=== PATIENT | female | born 1970 | race Caucasian/White ===

== ENCOUNTER 2017-06-07 23:53 | Emergency (ER) | payer OTHER ==
--- NOTE | 2017-06-08 00:58 | ED Physician Documentation ---
History of Present Illness - Stated complaint Stated Complaint: COUGH,HEADACHE - Chief complaint Chief Complaint: Resp - History obtained from History obtained from: Patient - History of Present Illness Timing: How many days ago (3) Improved by: rest Worsened by: exertion - Additonal information Additional information: c/o [employer] cough, chills/sweats, dyspnea. has not taken temperature at home. Review of Systems Constitutional: reports: Chills, Myalgias, Fatigue, Sweats. denies: Fever Throat: reports: Sore throat (mild ("because of all the coughing", per patient)) Cardiac: denies: Chest pain / pressure, Palpitations, Pedal edema, Calf pain Respiratory: reports: Dyspnea, Cough PD PAST MEDICAL HISTORY - Past Medical History Past Medical History: No - Past Surgical History Ortho: Other HEENT: Tonsil/Adenoidectomy - Present Medications Home Medications: Ambulatory Orders Medication Instructions Recorded Confirmed Albuterol Sulfate [Proventil Hfa 1 - 2 puffs INH Q4H PRN #1 inhaler 06/08/17 Inhaler] - Allergies Allergies/Adverse Reactions: Allergies Allergy/AdvReac Type Severity Reaction Status Date / Time acetaminophen [From Percocet] Allergy Rash Verified 06/08/17 00:05 epinephrine Allergy Dizziness Verified 06/08/17 00:05 oxycodone HCl * Allergy Rash Verified 06/08/17 00:05 [From Percocet] diphenhydramine HCl * AdvReac Unknown Verified 06/08/17 00:05 [From Benadryl] promethazine HCl * AdvReac Cramps Verified 06/08/17 00:05 [From Phenergan] - Social History Does the pt smoke?: No Smoking Status: Never smoker Does the pt drink ETOH?: No Does the pt have substance abuse?: No - Immunizations Immunizations are current?: No Immunizations: TDAP >10years/unknown PD ED PE NORMAL - Vitals Vital signs reviewed: Yes - General General: Alert and oriented X 3, No acute distress, Well developed/nourished - HEENT HEENT: Pharynx benign - Neck Neck: Supple, no meningeal sign - Cardiac Cardiac: RRR, No murmur - Respiratory Respiratory: No respiratory distress, Other (bilateral end-expiratory course wheezing) - Extremities Extremities: No edema Results - Vitals Vitals: Oxygen O2 Source Room air - Labs Labs: Laboratory Tests 06/08/17 00:07 Influenza A (Rapid) Negative Influenza B (Rapid) POSITIVE H Influenza Types A,B Ag + H - Rads (name of study) chest xray Radiology: Prelim report reviewed, See rad report PD MEDICAL DECISION MAKING - ED course Complexity details: reviewed results (Patient reported feeling significant relief with albuterol neb. reexam of lungs reveals minimal/trace end-expiratory wheezing, scattered bilaterally. good air flow), re-evaluated patient, considered differential, d/w patient Departure - Departure Disposition: 01 Home, Self Care Clinical Impression: Influenza Condition: Good Instructions: ED Flu Follow-Up: [facility] [Provider Group] [facility] [Provider Group] Prescriptions: Albuterol Sulfate [Proventil Hfa Inhaler] 1 - 2 puffs INH Q4H PRN #1 inhaler PRN Reason: Shortness Of Air/Wheezing Discharge Date/Time: 06/08/17 04:30
[2017-06-08] MEDS ORDERED: ALBUTEROL NEB 2.5 MG/3 ML INH STA (01:20)
[2017-06-08] MEDS ORDERED: ALBUTEROL NEB 2.5 MG/3 ML INH ONE (01:21)
--- NOTE | 2017-06-08 03:41 | XRAY Preliminary Report ---
Exam: XR CHEST 2 VIEW X-RAY IMPRESSION: 1. No acute abnormality seen in the chest. [facility] SITE ID: [id number]
--- NOTE | 2017-06-08 03:41 | XRAY Report ---
EXAM: CHEST RADIOGRAPHY EXAM DATE: 06/08/2017 03:27 AM. CLINICAL HISTORY: Cough, dyspnea. COMPARISON: None. TECHNIQUE: 2 views. FINDINGS: Lungs/Pleura: No alveolar consolidation or pleural effusion. No pneumothorax. Mediastinum: Heart and mediastinal contours are unremarkable. Other: None. IMPRESSION: 1. No acute abnormality seen in the chest. [facility] Referring Provider Line: [phone] SITE ID: [id number]
[2017-06-08 04:30] VITALS: BP 99/66
== END 2017-06-08 04:30 | disposition home or self-care (01) ==
LOC: ED 23:53
DX: J11.1 Influenza due to unidentified influenza virus with other respiratory manifestations (principal)
CPT/HCPCS: 71046; 87275; 87276; 94640; 99283

== ENCOUNTER 2017-06-12 13:14 | Observation (INO) | payer OTHER ==
[2017-06-12] MEDS ORDERED: SODIUM CHLORIDE 0.9% 1,000 ML IV ONE ×2 (13:41→15:40)
[2017-06-12] MEDS ORDERED: ONDANSETRON 4 MG/2 ML VIAL IVP STA (13:52)
[2017-06-12] MEDS ORDERED: ACETAMINOPHEN 1,000 MG/100 ML 100 ML IV STA (13:52)
[2017-06-12 13:59] LABS: BASOPHILS # (AUTO) 0.1 10^3/uL (0.0-0.1); BASOPHILS % (AUTO) 0.8 %; EOSINOPHILS % (AUTO) 0.5 %; HGB - HEMOGLOBIN 13.9 g/dL (12.0-16.0); LYMPHOCYTES # (AUTO) 1.7 10^3/uL (1.5-3.5); MEAN CORPUSCULAR HEMOGLOBIN 29.7 pg (27.0-31.0); MEAN CORPUSCULAR HGB CONC 33.8 g/dL (32.0-36.0); MEAN CORPUSCULAR VOLUME 87.8 fL (81.0-99.0); MEAN PLATELET VOLUME 9.4 fL (7.9-10.8); MONOCYTES # (AUTO) 0.5 10^3/uL (0.0-1.0); MONOCYTES % (AUTO) 4.8 %; NEUTROPHILS # (AUTO) 7.3 10^3/uL (1.5-6.6); NEUTROPHILS % (AUTO) 75.9 %; PLT - PLATELET COUNT 241 10^3/uL (130-450); RED BLOOD COUNT 4.67 10^6/uL (4.20-5.40); RED CELL DISTRIBUTION WIDTH 12.3 % (12.0-15.0); WHITE BLOOD COUNT 9.6 x10^3/uL (4.8-10.8)
[2017-06-12 14:18] LABS: ALBUMIN 4.4 g/dL (3.2-5.5); ALBUMIN/GLOBULIN RATIO 1.5 (1.0-2.2); BILIRUBIN,TOTAL 1.1 mg/dL (0.2-1.0); CALCIUM 8.8 mg/dL (8.5-10.3); CREATININE 0.7 mg/dL (0.4-1.0); TOTAL PROTEIN 7.4 g/dL (6.7-8.2)
[2017-06-12 14:27] LABS: HCG,QUALITATIVE BLOOD NEGATIVE
--- NOTE | 2017-06-12 14:29 | ED Physician Documentation ---
History of Present Illness - Stated complaint Stated Complaint: ABD PX - Chief complaint Chief Complaint: Abd Pain - Additonal information Additional information: hx from pt 46 female sick for about a week first with resp sx - seen in ED, had + influenza B was fine this AM and then somewhat abruptly developed significant RLQ pain and vomiting LMP now no dysuria some rad to R flank and R thigh as well Review of Systems Constitutional: reports: Fever Respiratory: reports: Dyspnea, Cough (better) GI: reports: Abdominal Pain (RLQ), Nausea, Vomiting (X 4) : reports: LMP (now) Musculoskeletal: reports: Back pain, Extremity pain Endocrine: denies: Easy bruising / bleeding Immunocompromised: denies: Immunocompromised PD PAST MEDICAL HISTORY - Past Surgical History Ortho: Other HEENT: Tonsil/Adenoidectomy - Present Medications Home Medications: Ambulatory Orders Medication Instructions Recorded Confirmed Albuterol Sulfate [Proventil Hfa 1 - 2 puffs INH Q4H PRN #1 inhaler 06/08/1705/27 Inhaler] - Allergies Allergies/Adverse Reactions: Allergies Allergy/AdvReac Type Severity Reaction Status Date / Time acetaminophen [From Percocet] Allergy Rash Verified 06/12/17 13:31 epinephrine Allergy Dizziness Verified 06/12/17 13:31 oxycodone HCl * Allergy Rash Verified 06/12/17 13:31 [From Percocet] diphenhydramine HCl * AdvReac Unknown Verified 06/12/17 13:31 [From Benadryl] promethazine HCl * AdvReac Cramps Verified 06/12/17 13:31 [From Phenergan] - Social History Does the pt smoke?: No Smoking Status: Never smoker Does the pt drink ETOH?: No Does the pt have substance abuse?: No - Immunizations Immunizations are current?: No Immunizations: TDAP >10years/unknown PD ED PE NORMAL - Vitals Vital signs reviewed: Yes - General General: Alert and oriented X 3, Other (looks miserable) - Neck Neck: Supple, no meningeal sign - Cardiac Cardiac: RRR - Respiratory Respiratory: No respiratory distress, Clear bilaterally - Abdomen Abdomen: Other (+ BS soft, TTP RLQ, no focal peritoneal signs) - Back Back: No CVA TTP - Derm Derm: Normal color - Neuro Neuro: Alert and oriented X 3 Results - Vitals Vitals: Vital Signs - 24 hr 06/12/17 13:26 Temperature 36.3 C L Heart Rate 58 L Respiratory 18 Rate Blood Pressure 116/63 O2 Saturation 99 Oxygen O2 Source Room air - Labs Labs: Laboratory Tests 06/12/17 06/12/17 06/12/17 13:55 13:55 13:55 WBC 9.6 RBC 4.67 Hgb 13.9 Hct 41.0 MCV 87.8 MCH 29.7 MCHC 33.8 RDW 12.3 Plt Count 241 MPV 9.4 Neut # 7.3 H Lymph # 1.7 [place] # 0.5 Eos # 0.0 Baso # 0.1 Absolute Nucleated RBC 0.01 Nucleated RBC % 0.1 Sodium 135 Potassium 3.6 Chloride 105 Carbon Dioxide 22 Anion Gap 8.0 BUN 9 Creatinine 0.7 Estimated GFR (MDRD) 90 Glucose 111 H Calcium 8.8 Total Bilirubin 1.1 H AST 32 ALT 37 Alkaline Phosphatase 58 Total Protein 7.4 Albumin 4.4 Globulin 3.0 Albumin/Globulin Ratio 1.5 Lipase 14 L Serum HCG, Qual NEGATIVE Urine Color Urine Clarity Urine pH Ur Specific [place] Urine Protein Urine Glucose (UA) Urine Ketones Urine Occult Blood Urine Nitrite Urine Bilirubin Urine Urobilinogen Ur Leukocyte Esterase Urine RBC Urine WBC Ur Squamous Epith Cells Urine Bacteria Ur Microscopic Review Urine Culture Comments Urine HCG, Qual 06/12/17 14:45 WBC RBC Hgb Hct MCV MCH MCHC RDW Plt Count MPV Neut # Lymph # [place] # Eos # Baso # Absolute Nucleated RBC Nucleated RBC % Sodium Potassium Chloride Carbon Dioxide Anion Gap BUN Creatinine Estimated GFR (MDRD) Glucose Calcium Total Bilirubin AST ALT Alkaline Phosphatase Total Protein Albumin Globulin Albumin/Globulin Ratio Lipase Serum HCG, Qual Urine Color YELLOW Urine Clarity HAZY Urine pH 7.5 Ur Specific [place] 1.025 Urine Protein NEGATIVE Urine Glucose (UA) NEGATIVE Urine Ketones TRACE Urine Occult Blood LARGE H Urine Nitrite NEGATIVE Urine Bilirubin NEGATIVE Urine Urobilinogen 0.2 (NORMAL) Ur Leukocyte Esterase NEGATIVE Urine RBC TNTC H Urine WBC 0-3 Ur Squamous Epith Cells RARE Squamous Urine Bacteria Rare Ur Microscopic Review INDICATED Urine Culture Comments NOT INDICATED Urine HCG, Qual NEGATIVE - Rads (name of study) CT AP Radiology: See rad report (normal except for mild heterogeneous hypoechoic attentuation to left lobe liver likely steatosis per rads - nl GB, nl kidney, no hydro, normal appendix, no abd nodes, nl ovaries s mass or risk for torsion, no FF, no free air, no AAA) PD MEDICAL DECISION MAKING - ED course ED course: repeat exam better but still ill appearing and with continued though lesser right sided abd pain, a bit more tender mid to upper than initial exam so added on ruq sono - but no tech available at this time to do the study labs reviewed and normal except hematuria (LMP now, no stone on CT) and minimally elev bili pt feeling bit better after IVF toradol ofirmev still ill, still with some pain hospitalist will admit for ongoing IVF and continued workup - to fup sono results Departure - Departure Disposition: ED Place in Observation Clinical Impression: Abdominal pain Qualifiers: Abdominal location: right lower quadrant Qualified Code(s): R10.31 - Right lower quadrant pain Condition: Good Discharge Date/Time: 06/12/17 16:36
[2017-06-12] MEDS ORDERED: IOPAMIDOL-300 100 ML VIAL ONE (14:55)
[2017-06-12 14:56] LABS: BILIRUBIN,URINE NEGATIVE (NEGATIVE); GLUCOSE, URINE (UA) NEGATIVE (NEGATIVE); KETONES,URINE (UA) TRACE mg/dL (NEGATIVE); LEUKOCYTE ESTERASE, URINE NEGATIVE (NEGATIVE); NITRITE,URINE NEGATIVE (NEGATIVE); OCCULT BLOOD,URINE LARGE (NEGATIVE); PH,URINE 7.5 PH (5.0-7.5); PROTEIN,URINE NEGATIVE (NEGATIVE); UROBILINOGEN,URINE 0.2 (NORMAL) E.U./dL (NORMAL)
[2017-06-12 14:58] LABS: CLARITY,URINE HAZY (CLEAR); HCG UR QUAL NEGATIVE
[2017-06-12 15:07] LABS: BACTERIA,URINE Rare /HPF (None Seen); RBC,URINE TNTC /HPF (0-5); SQUAMOUS EPITHELIAL CELL,UR RARE Squamous (<= Few)
[2017-06-12] MEDS ORDERED: IOPAMIDOL-300 100 ML VIAL IVP ONE (15:08)
--- NOTE | 2017-06-12 15:23 | CT Preliminary Report ---
Exam: CT ABDOMEN/PELVIS W/ IMPRESSION: 1. No acute intra-abdominal or pelvic abnormality demonstrated. Specifically appendix is well-visuali zed and normal. 2. Heterogeneous hepatic hypoattenuation, which is nonspecific and could be due to many acute and chr onic causes, but is most likely due to hepatic steatosis. Other considerations would include hepatiti s and other causes of hepatocellular disease. [facility] SITE ID: [id number]
--- NOTE | 2017-06-12 15:29 | CT Report ---
EXAM: CT ABDOMEN AND PELVIS EXAM DATE: 06/12/2017 02:58 PM. CLINICAL HISTORY: Right lower quadrant pain. COMPARISONS: Chest radiograph 06/08/2017. CT of abdomen and pelvis without contrast 04/15/2012. TECHNIQUE: Routine helical CT imaging was performed through the abdomen and pelvis. IV contrast: Isov ue 300 100 mL. Enteric contrast: No. Reconstructions: Coronal and sagittal. In accordance with CT protocol optimization, one or more of the following dose reduction techniques w ere utilized for this exam: automated exposure control, adjustment of mA and/or KV based on patient s ize, or use of iterative reconstructive technique. FINDINGS: Lung Bases: Minimal subsegmental atelectasis versus scarring medially in the inferior aspects of the right middle lobe and lingula otherwise unremarkable. Liver: Normal size and surface contour. No suspicious focal lesion. There is heterogeneous hepatic pa renchymal hypoattenuation, predominating in the left lobe. Gallbladder/Bile Ducts: Unremarkable. Spleen: Normal. Pancreas: Normal. Adrenal Glands: Normal. Kidneys: Normal. No masses or hydronephrosis. Normal variant presence of 2 right renal veins. Peritoneal Cavity/Bowel: -No free fluid. No extraluminal gas. -No evidence of bowel obstruction or inflammation. Stool burden is within normal limits. The appendix is well-visualized and normal (for example 07/22). -No abnormally enlarged retroperitoneal or mesenteric lymph nodes. Pelvic Organs: The uterus is anteflexed and unremarkable. No adnexal mass demonstrated. Urinary bladd er is decompressed but unremarkable. Vasculature: No aneurysms or other significant abnormality. Bones: No acute osseous abnormality. Well-circumscribed subcentimeter lucent lesion within the right iliac wing medially is statistically likely benign, possibly a small bone cyst, in the absence of kno wn malignancy (). Other: None. IMPRESSION: 1. No acute intra-abdominal or pelvic abnormality demonstrated. Specifically the appendix is well-vis ualized and normal. 2. Heterogeneous hepatic hypoattenuation, which is nonspecific and could be due to many acute and chr onic causes, but is most likely due to hepatic steatosis. Other considerations would include hepatiti s and other causes of hepatocellular disease. [facility] Referring Provider Line: [phone] SITE ID: [id number]
[2017-06-12] MEDS ORDERED: KETOROLAC 60 MG/2 ML VIAL IVP STA (15:40)
[2017-06-12] MEDS ORDERED: ONDANSETRON ODT 4 MG TABLET TL PRN (15:50)
[2017-06-12] MEDS ORDERED: ONDANSETRON 4 MG/2 ML VIAL IVP PRN (15:50)
[2017-06-12] MEDS ORDERED: HYDROmorphone 1 MG/ML CARPUJECT IVP PRN (15:50)
[2017-06-12] MEDS ORDERED: SODIUM CHLORIDE FLUSH 0.9% 10 ML SYRINGE IVP PRN (15:50)
[2017-06-12] MEDS ORDERED: ALBUTEROL NEB 2.5 MG/3 ML INH PRN (15:53)
[2017-06-12] MEDS: SODIUM CHLORIDE 0.9% 1,000 ML IV SCH (17:06)
[2017-06-12] MEDS: SODIUM CHLORIDE FLUSH 0.9% 10 ML SYRINGE IVP SCH (17:08)
[2017-06-12] MEDS: PANTOPRAZOLE 40 MG VIAL IVP SCH (17:08)
--- NOTE | 2017-06-12 20:57 | Ultrasound Report ---
EXAM: ABDOMEN ULTRASOUND LIMITED, RUQ EXAM DATE: 06/12/2017 08:12 PM. CLINICAL HISTORY: R abd pain hematuria elev bili. COMPARISON: None. TECHNIQUE: Real-time scanning was performed with static images obtained. FINDINGS: Liver: Increased echogenicity with coarsened heterogeneous echotexture. 16.5 cm. Main portal vein jerome w: Hepatopetal. Gallbladder: Normal. No stones, wall thickening, or sonographic Chisholm's sign. Biliary System: CBD measures 3 mm. No intrahepatic or extrahepatic ductal dilatation. Other: Right kidney is unremarkable and without hydronephrosis. IMPRESSION: 1. No cholelithiasis or bile duct dilation. 2. Hepatic steatosis versus other hepatocellular disease. [facility] Referring Provider Line: [phone] SITE ID: [id number]
[2017-06-13 00:09] VITALS: BP 93/57
[2017-06-13] MEDS: SODIUM CHLORIDE FLUSH 0.9% 10 ML SYRINGE IVP SCH (00:56)
[2017-06-13] MEDS: SODIUM CHLORIDE 0.9% 1,000 ML IV SCH (02:51)
[2017-06-13 05:41] LABS: BASOPHILS % (AUTO) 0.2 %; EOSINOPHILS # (AUTO) 0.1 10^3/uL (0.0-0.7); EOSINOPHILS % (AUTO) 1.4 %; HGB - HEMOGLOBIN 11.6 g/dL (12.0-16.0); LYMPHOCYTES # (AUTO) 2.4 10^3/uL (1.5-3.5); LYMPHOCYTES % (AUTO) 45.8 %; MEAN CORPUSCULAR HEMOGLOBIN 29.2 pg (27.0-31.0); MEAN CORPUSCULAR HGB CONC 32.6 g/dL (32.0-36.0); MEAN CORPUSCULAR VOLUME 89.5 fL (81.0-99.0); MEAN PLATELET VOLUME 9.8 fL (7.9-10.8); MONOCYTES # (AUTO) 0.4 10^3/uL (0.0-1.0); MONOCYTES % (AUTO) 6.7 %; NEUTROPHILS # (AUTO) 2.4 10^3/uL (1.5-6.6); NEUTROPHILS % (AUTO) 45.9 %; PLT - PLATELET COUNT 208 10^3/uL (130-450); RED BLOOD COUNT 3.96 10^6/uL (4.20-5.40); RED CELL DISTRIBUTION WIDTH 12.5 % (12.0-15.0); WHITE BLOOD COUNT 5.3 x10^3/uL (4.8-10.8)
[2017-06-13 05:45] LABS: ALBUMIN 3.2 g/dL (3.2-5.5); ALBUMIN/GLOBULIN RATIO 1.3 (1.0-2.2); BILIRUBIN,TOTAL 0.8 mg/dL (0.2-1.0); CALCIUM 7.7 mg/dL (8.5-10.3); CREATININE 0.5 mg/dL (0.4-1.0); TOTAL PROTEIN 5.6 g/dL (6.7-8.2)
[2017-06-13] MEDS: PANTOPRAZOLE 40 MG VIAL IVP SCH (07:04)
--- NOTE | 2017-06-13 07:48 | Discharge Plan ---
Discharge Plan Disposition: 01 Home, Self Care Condition: Good Diet: Regular Activity Restrictions: Activity as Tolerated Shower Restrictions: No Driving Restrictions: No Additional Instructions or Follow Up instructions: You were placed in observation for right lower quadrant pain. After examination , review of laboratory work and a CT of the abdomen, you may have either ruptured an ovarian cyst or passed a kidney stone. There is no appendicitis visible and no enlarging lymph glands for mesenteric adenitis. Unfortunately, you may do this again in the future. Because you are currently menstruating, it masks the blood we would have otherwise have seen in your urinalysis and that would have let us know it was a kidney stone. Please followup with your primary care provider in the next month just to update them on your stay with us. No Smoking: If you smoke, Please STOP! Call for help.
--- NOTE | 2017-06-13 08:44 | HISTORY & PHYSICAL EXAMINATION ---
DATE OF SERVICE: 06/12/2017 Physician: Lovely Harris MD PRIMARY CARE PROVIDER: [facility]. ADMITTING PROVIDER: Lovely Harris. CHIEF COMPLAINT: Sudden onset excruciating right lower quadrant abdominal pain accompanied by nausea and vomiting. HISTORY OF PRESENT ILLNESS: The patient had just been in the hospital visiting our emergency room for the flu on 06/07/2017. She had fever, chills, severe myalgias, arthralgias with wheezing and bronchitis. She was flu B positive. The emergency room doctor opted not to treat her for it with Tamiflu and she went home for symptomatic management. She has been gradually recovering from the flu and its effects. The anorexia, coughing and wheezing have improved. Today, she had finally improved to the point that she would actually go out to lunch. She was in the midst of tidying up the house a little bit, going to take a shower and get dressed and go have lunch with a girlfriend. She had started her menstrual cycle on 2017. It was her usual menstrual cycle. She is not usually plagued by any type of dysmenorrhea or menometrorrhagia. This morning, she had a loose bowel movement of formed brown stool, but no fever , no chills. No diarrhea. No blood in her stool. As she was then tidying up the house she had a sudden onset of excruciating right lower quadrant pain. It started abruptly, and gradually increased in intensity to that she dropped to the floor and curled up in the position because she could not believe how agonizing painful the pain was. She felt pain in her hip , anterior thigh. A few minutes later, she began having nonstop nausea and vomiting and dry heaves. There was no blood in the emesis. She was finally able to call out to a friend who was to come visit her. Friend came over and found her on the floor. Put her in her car and brought her to the emergency room. In the emergency room, she was evaluated by Dr. Vallecillo. Temperature was 36.3, pulse 54 , blood pressure initially 116/63 and came down to 92/59. 99-100% room air saturation. She was hunched over, and she originally got IV Tylenol with minimal response. Then IV Toradol took her pain level down to a 3/10 where it had been a 10/10. CBC was normal. CMP was normal, except for a bilirubin of 1.1. Abdominal exam had normal bowel sounds. No focal peritoneal signs, but she did have right lower quadrant pain with palpation. CT of the abdomen and pelvis was done. She has no acute intra-abdominal or pelvic abnormality demonstrated. Appendix was well visualized and normal. Heterogeneous hepatic hypoattenuation, nonspecific , most likely due to hepatic steatosis. The patient was still uncomfortable with her right lower quadrant abdominal pain. She was now placed in observation to make sure there is no recurrence of the pain, evolution to appendicitis, or other pathology. The only abnormal finding was large occult blood on her urinalysis with too numerous to count red cells, but again, the patient is on her menstrual cycle. PAST MEDICAL HISTORY 1. G2, P2. Normal menstrual cycles. No menometrorrhagia or dysmenorrhea. 2. Left acromioclavicular joint reconstruction after injury in the . 3. Chronic disability with musculoskeletal and polyarthralgia pain secondary to duty. 4. Migraine headaches. ALLERGIES 1. ACETAMINOPHEN. 2. EPINEPHRINE. 3. OXYCODONE. 4. BENADRYL. 5. PHENERGAN. But she took Tylenol fine today. She attributes Tylenol or acetaminophen rash when she took PERCOCET. MEDICATIONS: Albuterol HFA inhaler prescribed from her ED visit with the flu. SOCIAL HISTORY: She was born in [place], [place]. 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 She has been for about 23 years to her first . They have 2 children together. They live in their own home in [place], [place], and she is completely independent with her activities of daily living. She rarely drinks alcohol. She smoked in her teen years very briefly. No history of recreational substance use or abuse. FAMILY HISTORY: Mom is in her 80s and has survived breast cancer and has a history of gallbladder removal. Dad at age 79 or 80 of complications of diabetes. She has 1 brother, 1 sister and both have their gallbladders going to be removed in the next few months, and her 2 children are healthy. REVIEW OF SYSTEMS: A complete review of systems was obtained. Positive pertinent findings are the recent flu. She has no ENT, cardiac, pulmonary complaints. is negative. GI is positive for today. She has chronic polyarthralgia joint pain, especially in the back and shoulders due to the duty. Skin is negative, neurology is negative, endocrine is negative, and IRON MELTER is negative other than dizziness today. PHYSICAL EXAMINATION VITAL SIGNS: Temperature is 36.3, pulse of 64, blood pressure 92/59, respirations 20 and 100% on room air saturation. GENERAL: She is a short statured, well-nourished, middle aged female who looks her stated age with furrowed brow, pale. Face, hands and feet feel quite cool to touch and she is slightly diaphoretic. HEAD AND NECK: Unremarkable. She has normal cranial nerve exams with normal speech, normal facial symmetry. Neck is supple without JVD or adenopathy. LUNGS: Clear to auscultation and percussion. No crackles, rhonchi or wheezing. No increased respiratory effort. HEART: PMI is normally placed with a regular rate and rhythm. No murmurs, rubs , or gallops. ABDOMEN: Soft, normoactive bowel sounds, 3/10 right lower quadrant pain, without rebound or guarding. No masses palpable. EXTREMITIES: Cool hands and feet without clubbing, cyanosis or edema. There are no joint effusions. NEUROLOGIC: She is alert, oriented to person, place and time. Follows 2-step commands. Has no focal deficits. Sitting up causes a bit of abdominal discomfort and reproduces some of the pain. She prefers to stay still, but she is able to sit up and follow gross motor exam that is intact and normal. LABORATORY DATA: As already stated CMP is normal except for random glucose 111 and a total bilirubin 1.1. Serum hCG negative. CBC is normal. Urinalysis with gross hematuria. CT abdomen and pelvis as above. ASSESSMENT AND PLAN: Abrupt onset right lower quadrant pain. Differential diagnosis includes gynecologic causes such as ruptured ovarian cyst, urinary causes such as a passed kidney stone, or early mesenteric adenitis in a patient who has just had viral syndrome. Appendix appears normal. No fever, no white cell count. PLAN: Place patient in observation. 1. ATTESTATION The patient will be admitted less than 96 hours. IV fluids for hydration in the face of recent nausea, vomiting, as well as viral syndrome. Symptomatic management of pain with Toradol, Tylenol, Dilaudid and antiemetics. Plan discharge in the morning if the patient remains stable overnight. 2. FULL CODE STATUS. 3. Deep venous thrombosis prophylaxis will be PETE loera. 4. Elevated bilirubin. Check US. TD: 06/12/2017 18:47 [email or web address]
[2017-06-13] MEDS ORDERED: POLYETHYLENE GLYCOL 3350 17 GM PACKET PO SCH (09:00)
--- NOTE | 2017-06-13 20:18 | DISCHARGE SUMMARY ---
Discharge Summary Admit Date: 06/12/17 Discharge Date: 06/13/17 Discharging Provider: Lovely Harris MD Primary Care Provider: [facility] Code Status: Attempt Resuscitation Condition at Discharge: Good Discharge Disposition: 01 Home, Self Care - DIAGNOSES Discharge Diagnoses with Status of Each Condition: Right lower quadrant abdominal pain. Resolved Elevated bilirubin. - HPI History of Present Illness: She had the flu last week. Was on the road to recovery. On the day of admission she developed agonizing right lower quadrant pain that doubled her over and caused her to fall to the floor and curl up in the position. The only new thing was a new onset of menstrual cycle that was particularly heavy on Sunday (date of admission was on a Sunday). She was evaluated in the emergency room and she did not have a fever, normal white cell count. CT the abdomen was negative. - HOSPITAL COURSE Hospital Course: She was evaluated in the emergency room and she did not have a fever, normal white cell count. CT the abdomen was negative. Still had throbbing right lower quadrant pain that had diminished with the use of Toradol and Tylenol. She is placed in observation to make sure she did not have evolving appendicitis. The only thing we can think of is that of a passing kidney stone , or ruptured ovarian cyst in relation to her menstrual cycle. Overnight pain gradually resolved to be completely gone on the morning of discharge. She was tolerating a normal diet. Ambulating without any assistance. And again completely pain-free. Ultrasound was done because of elevated bilirubin. She does have a fatty liver. She will need follow-up for that in the primary care setting. I have asked her to see her [facility] physician in the next 1-2 weeks. - ALLERGIES Allergies/Adverse Reactions: Allergies Allergy/AdvReac Type Severity Reaction Status Date / Time acetaminophen [From Percocet] Allergy Rash Verified 06/12/17 13:31 epinephrine Allergy Dizziness Verified 06/12/17 13:31 oxycodone HCl * Allergy Rash Verified 06/12/17 13:31 [From Percocet] diphenhydramine HCl * AdvReac Unknown Verified 06/12/17 13:31 [From Benadryl] promethazine HCl * AdvReac Cramps Verified 06/12/17 13:31 [From Phenergan] - MEDICATIONS Home Medications: Ambulatory Orders Medication Instructions Recorded Confirmed Albuterol Sulfate [Proventil Hfa 1 - 2 puffs INH Q4H PRN #1 inhaler 06/08/1705/27 Inhaler] - PHYSICAL EXAM AT DISCHARGE General Appearance: positive: Alert Eyes Bilateral: positive: PERRL, EOMI ENT: positive: Pharynx nml Neck: positive: No JVD Respiratory: positive: Chest non-tender. negative: Wheezes, Rales, Rhonchi Cardiovascular: positive: Regular rate & rhythm. negative: Systolic murmur, Gallop/S4, Friction rub Peripheral Pulses: positive: 2+ Abdomen: positive: Non-tender, No organomegaly, Nml bowel sounds, No distention Skin: positive: Warm, Dry Extremities: positive: Non-tender, Full ROM, No pedal edema Neurologic/Psychiatric: positive: Oriented x3, CN's nml (2-12), Motor nml - LABS Result Diagrams: 06/13/17 05:31 06/13/17 05:31 - DIAGNOSTIC IMAGING Diagnostic Imaging Results: Final report reviewed - TIME SPENT Time Spent in Discharge (Minutes): 30
== END 2017-06-13 08:33 | disposition home or self-care (01) ==
LOC: ED 13:14 → OBS 15:50
PROVIDERS: ADMIT Specialist; ATTEND Specialist
DX: R10.31 Right lower quadrant pain (principal); R10.813 Right lower quadrant abdominal tenderness; R11.2 Nausea with vomiting, unspecified; K76.0 Fatty (change of) liver, not elsewhere classified; Z87.891 Personal history of nicotine dependence; Z87.09 Personal history of other diseases of the respiratory system
CPT/HCPCS: 36415; 74177; 76705; 80053; 81001; 81025; 83690; 84703; 85025; 96361; 96365; 96375; 99283; 99284; G0378; J0131; Q9967; 81003; 87086

== ENCOUNTER 2020-06-23 12:19 | Outpatient (CLI) | payer OTHER ==
--- NOTE | 2020-07-01 11:11 | Mammography Report ---
BILATERAL DIGITAL SCREENING MAMMOGRAM 3D/2D: 06/23/2020 CLINICAL: Routine screening. Additional films were requested but not obtained. The tissue of both breasts is heterogeneously dens e. This may lower the sensitivity of mammography. No significant masses, calcifications, or other findings are seen in either breast. IMPRESSION: NEGATIVE There is no mammographic evidence of malignancy. A 1 year screening mammogram is recommended. This exam was interpreted at Station ID: [id number]. NOTE: For mammograms, a report in lay terms will be sent to the patient. Approximately 15% of breast malignancies will not be visualized mammographically. In the management of a palpable breast mass, a negative mammogram must not discourage biopsy of a clinically suspicious lesion. Electronically Signed By: Kervin rose/barbie:06/30/2020 13:39:23 ACR BI-RADS Category 1: Negative 3341F PARENCHYMAL PATTERN: (D) - The breast(s) demonstrate(s) heterogeneously dense fibroglandular partrinay ma. BI-RADS CATEGORY: (1) - 1 RECOMMENDATION: (ANNUAL) - Recommend routine annual screening mammography. [id number] 1 year screening LATERALITY: (B)
== END 2020-06-23 12:20 | disposition home or self-care (01) ==
LOC: DI 12:19
DX: Z12.31 Encounter for screening mammogram for malignant neoplasm of breast (principal)

== ENCOUNTER 2022-06-08 14:20 | Outpatient (CLI) | payer OTHER ==
--- NOTE | 2022-06-09 09:39 | Mammography Report ---
BILATERAL DIGITAL SCREENING MAMMOGRAM 3D/2D: 06/08/2022 CLINICAL: Routine screening. Family history of breast cancer. Comparison is made to exam dated: 06/23/2020 mammogram - [facility]. Both breasts are heterogeneously dense, which may obscure small masses (category c / 51-75% glandular tissue). No significant masses, calcifications, or other findings are seen in either breast. There has been no significant interval change. IMPRESSION: NEGATIVE There is no mammographic evidence of malignancy. A 1 year screening mammogram is recommended. Based on Tyrer-Cuzick model (a risk assessment model), the patient's lifetime risk is 28.2% and her 1 0 year risk is 7.9%. If a patient has an elevated risk, a more comprehensive evaluation should be con sidered and/or a referral to a genetic counselor. The [place] [employer], [employer], and NCCN Guidelines advise the consideration of Breast MRI as an adjunct to screening mammog tk in patients whose "Lifetime risk to develop breast cancer" is 20% or higher. This exam was interpreted at Station ID: [id number]. NOTE: For mammograms, a report in lay terms will be sent to the patient. Approximately 15% of breast malignancies will not be visualized mammographically. In the management of a palpable breast mass, a negative mammogram must not discourage biopsy of a clinically suspicious lesion. Electronically Signed By: Kervin rose/barbie:06/08/2022 15:20:17 letter sent: No_Letter ACR BI-RADS Category 1: Negative 3341F PARENCHYMAL PATTERN: (D) - The breast(s) demonstrate(s) heterogeneously dense fibroglandular shashi hamilton. BI-RADS CATEGORY: (1) - 1 Mammogram [id number] 1 year screening LATERALITY: (B)
== END 2022-06-08 14:21 | disposition home or self-care (01) ==
LOC: DI 14:20
PROVIDERS: ATTEND Family Medicine
DX: Z12.31 Encounter for screening mammogram for malignant neoplasm of breast (principal); Z80.3 Family history of malignant neoplasm of breast